=== PATIENT | male | born 1970 | race Two or more races ===

== ENCOUNTER 2024-11-18 16:18 | Outpatient (CLI) | payer OTHER ==
[~2024-11-18 16:18] MED LIST: MECLIZINE HCL25 MG PO
[2024-11-18 17:55] LABS: COL ADP 77 SECONDS (56-102); COL EPI 188 SECONDS (82-175)
== END 2024-11-18 16:22 | disposition home or self-care (01) ==
LOC: LAB 16:18
PROVIDERS: ATTEND Pain Medicine Interventional Pain Medicine
DX: M54.50 Low back pain, unspecified (principal); M46.1 Sacroiliitis, not elsewhere classified; M54.2 Cervicalgia; D68.9 Coagulation defect, unspecified